=== PATIENT | male | born 1960 | race Caucasian/White ===

== ENCOUNTER 2020-01-29 03:19 | Outpatient (CLI) | payer BC, SELFPAY ==
[2020-01-29 17:59] LABS: CREATININE 0.92 mg/dL (0.70-1.30); Potassium 4.3 mmol/L (3.5-5.1)
[2020-01-30 11:22] LABS: Calculated LDL 123 mg/dL (<100); Cholesterol 226 mg/dL (<200); HDL Cholesterol 79 mg/dL (40-60); Triglyceride 124 mg/dL (<150)
== END 2020-01-29 03:39 ==
PROVIDERS: PCP Family Medicine; Visit Provider Family Medicine
DX: Z00.00 Encounter for general adult medical examination without abnormal findings (principal); E78.5 Hyperlipidemia, unspecified; Z12.5 Encounter for screening for malignant neoplasm of prostate
CPT/HCPCS: 36415; 80061; 84153; 82565; 84132

== ENCOUNTER 2020-05-04 06:20 | Day surgery (SDC) | payer BC, SELFPAY ==
[2020-05-04] VITALS (7 sets, daily range): BP systolic 85–154; BP diastolic 41–99; PULSE 57–74; RESP 11–18; TEMP 36.1–36.5; O2SAT 97–100
[2020-05-04] MEDS: Lactated Ringers 1,000 ML 80 ML IV (06:50)
[2020-05-04] MEDS: Gabapentin 300 MG CAP PO (07:08)
[2020-05-04] MEDS: Acetaminophen 500 MG TAB 1000 MG PO (07:08)
[2020-05-04] MEDS: Bupivacaine LIPOSOME/PF 133 MG/10 ML VIAL IJ ×2 (07:40→08:38)
[2020-05-04] MEDS: Bupivacaine 0.25% Pres-Free 30 ML VIAL ×2 (07:40→07:56)
--- NOTE | 2020-05-04 12:58 | W.PM.OP ---
Date of service: 05/04/20 Time of Service: 12:58 Operative Note Operative Note DATE OF PROCEDURE: 05/04/20 PRE-OP DIAGNOSIS: left inguinal hernia POST-OP DIAGNOSIS: other (indirect w/ crd lipoma- large ) PROCEDURE: open left inguinal hernia repair w/ mesh SURGEON: Pippa Adam CONSUMER STUDIES PROFESSOR: Kym Price ANESTHESIA TYPE: Local By Surgeon, General LMA/ETT and Primary Nerve Block Refer to Anesthesia Record ESTIMATED BLOOD LOSS: 5 PATHOLOGY: none sent COMPLICATIONS: None Patient was transported to: PACU Patient's condition: stable Implants: see RN notes Procedure Description: INDICATIONS: The pt is here today for surgery regarding symptomatic --- inguinal hernia that has failed outpatient conservative medical management and he is here today for repair. Informed consent was obtained, explaining risks and benefits of the procedure including but not limited to bleeding, infection, pneumonia, blood clots, chronic pain, chronic numbness, damage to testicle resulting in removal, recurrence of hernia, reaction to Mesh necessitating removal, and other unforetold complications, and complications of anesthesia-which were addressed by the [employer]. The patient is marked in preOp prior to the procedure DESCRIPTION OF PROCEDURE: The pt is then brought to the operative room suite. Anesthesia was administered per the Department of Anesthesia. Nerve block was done per the department of anesthesia. the patient was prepped and draped in the usual sterile fashion using ChloraPrep scrub solution. Pause for the cause was done. He did receive preop IV antibiotics, and 30 mL of .25% Marcaine w/ epinephrine was used for local anesthetization. A #12 blade was used to make an incision over the external ring. Electrocautery used to provide hemostasis and dissect down to the fascia. The fascia was pretty much obliterated and there was nothing to open. The cord is elevated. The nerve was not identified. There largeis a cord lipomas. Electro-cautery is used to provide hemostasis. A [place] drain was placed around the cord to assist in mobilization. The cord was explored. There was is large hernia sac on the cord. There is no direct hernia pushing through the floor. The hernia sac is dissected off the cord using a combination of blunt dissection and electrocautery. There is significant scarring from the cord to the vascular structures. Electrocautery is used to provide hemostasis. There are no contents within the hernia sac. The hernia sac is than inverted and returned to the abdominal cavity. A Lg size plug is than inserted into the defect through the internal ring, and over sewn to tighten up the ring with 2-0 vicryl. Please see RN operative notes for lot number. The cord structures are still able to freely move through the ring itself. The patch was then placed onto the floor, and using 2-0 Vicryl, sewn into the pubic tubercle and the shelving portions of the inguinal ligament, in the standard Lichenstein fashion. The tails of the mesh are brought around the cord, sewn together w/ 2-0 Vicryl, and tucked under the external oblique. The wound was copiously irrigated. There was no bleeding noted. The drain was removed. All structures are returned to normal anatomical position. The nerve is not sewn into the mesh, nor caught up in any sutures. The external oblique is re-approximated using 2-0 vicryl in a running fashion. Deep tissue was approximated with 3-0 Vicryl in a running fashion, and skin was approximated with 4-0 Monocryl in a running subcuticular fashion. Skin glue and sterile dressings are applied. The patient tolerated the procedure without complications to recovery in stable condition. PIPPA ADAM, DO
== END 2020-05-04 11:20 | disposition home or self-care (01) ==
LOC: SUR 06:20
PROVIDERS: PCP Family Medicine; Visit Provider Surgery
PROC: (CPT 49505; principal; 2020-05-04 07:30)
DX: K40.90 Unilateral inguinal hernia, without obstruction or gangrene, not specified as recurrent (principal); D17.6 Benign lipomatous neoplasm of spermatic cord; I10 Essential (primary) hypertension
CPT/HCPCS: 49505; 55520; 76942; C1781; J1100; J1885; J2250; J2405; J2704

== ENCOUNTER 2020-07-30 21:39 | Emergency (ER) | payer BC, SELFPAY ==
--- NOTE | 2020-07-30 21:41 | ED.GENADUL_ITS ---
Discharge Plan Disposition Patient Disposition: HOME Condition: Stable Discharge Details Clinical Impression: Laceration of right lower extremity Primary Care Provider: Mihir Garcia ED Provider: Jan Mullins Home Meds and New Rx's Prescriptions: New ciprofloxacin HCl 500 mg tablet 500 mg PO BID Qty: 14 RF: 0 Continued lisinopril 10 mg tablet 10 mg PO DAILY Qty: 90 RF: 3 lisinopril-hydrochlorothiazide 10-12.5 mg tablet 1 tab PO DAILY Qty: 90 RF: 3 Discharge Instructions Instructions: Laceration (ED) Additional Instructions: return in 7-10 days for evaluation for suture removal and sooner if signs of infection such as spreading redness or yellow/white discharge from the wound Medical Decision Making 59 yo male with hx of htn comes in with right lateral lower leg laceration. He was coming out of a [place] after paddleboarding. While going up some steps one broke and he fell back and cut his right leg on a side of a stair. Denies head trauma or loc. HAs a 5cm laceration that runs vertically over the right lateral distal leg. Has full rom of the ankle and foot and normal sensation so doubt tendon or nerve injury. No pain elsewhere. Will require sutures, will use local anesthetic and irrigate and close with sutures. closed without issues, will start cipro as it is a freshwater injury. Return in 7-10 days for removal and sooner for signs of infection Differential Diagnosis Differential Diagnosis: laceration, abrasion HPI General Mode of arrival: ambulatory . Date/Time Provider Initiated Documentation: 07/30/20 21:41 . Limitations to Documentation: no limitations . Information obtained by: patient . History of Present Illness 59 year old M presents to the emergency department with the chief complaint of right ankle laceration, described as moderate, Quality is described as aching, Patient reports no radiation. Patient started experiencing this hour(s) (1) and it has been constant. No relieving factors improve symptom(s), No exacerbating factors reported . Patient notes no other symptoms.. Related Data Home Medications Medication Instructions Recorded Confirmed lisinopril 10 mg tablet 10 mg PO DAILY #90 tab-cap 03/30/20 05/04/20 lisinopril 10 1 tab PO DAILY #90 tab 05/18/20 05/18/20 mg-hydrochlorothiazide 12.5 mg tablet ciprofloxacin HCl 500 mg PO BID #14 tab 07/30/20 Previous Rx's Medication Instructions Recorded lisinopril 10 mg tablet 10 mg PO DAILY #90 tab-cap 03/30/20 lisinopril 10 1 tab PO DAILY #90 tab 05/18/20 mg-hydrochlorothiazide 12.5 mg tablet ciprofloxacin HCl 500 mg PO BID #14 tab 07/30/20 Allergies Allergy/AdvReac Type Severity Reaction Status Date / Time oxycodone HCl [From Percocet] AdvReac Bad Verified 05/18/20 13:46 dreams, hallucinations Review of Systems All systems reviewed & are unremarkable except as noted in HPI and below Constitutional Constitutional: Denies chills, Denies fever(s) and Denies weakness Cardiovascular Cardiovascular: Denies chest pain and Denies dyspnea Respiratory Respiratory: Denies cough and Denies dyspnea Gastrointestinal Gastrointestinal: Denies abdominal pain, Denies nausea and Denies vomiting Musculoskeletal Musculoskeletal: Denies joint swelling Neurologic Neurologic: Denies weakness PFSH Medical History (Updated 07/30/20 @ 22:13 by Jan Mullins MD) Asthma Essential hypertension Surgical History (Updated 05/17/20 @ 10:22 by Kelly Lake RN) ankle surgery Colonoscopy - MAC History of appendectomy Hx of left inguinal hernia repair (~05/04/20) Hx of tonsillectomy Repair of inguinal hernia 10/20/16-RIGHT Vasectomy Family History (Updated 03/31/20 @ 16:13 by Meagan Maynard) Mother No problems noted. Father No problems noted. Sister No problems noted. Sister No problems noted. Brother No problems noted. Son No problems noted. Daughter No problems noted. Social History (Updated 03/31/20 @ 16:12 by Meagan Maynard) Smoking/Tobacco Use Status: Never Second Hand Exposure: Yes Smoking risk assessment performed?: Yes Alcohol Intake: current Alcohol Intake frequency: a few times a week Alcohol type: beer Drug use: Never Substance use type: does not use Adopted: No Caregiver/Support person: No Household members: spouse Housing: house Communication Needs: None Do you need help understanding health information?: Never Pets and animals: No Sexually active: Yes Do you think of yourself as: straight/heterosexual Current gender identity: male What is your relationship status?: How often do you talk on the phone with friends or family?: three or more times per week How often do you get together with friends or relatives?: three or more times per week How often do you attend nondenominational or anabaptism services?: 4 or more times per year Do you belong to any clubs or organized social groups?: no Panel score (0-1 are the most socially isolated patients): 3 What type of physical activity do you participate in: bicycling Duration: 15-30 minutes/day Frequency: daily Coco/Pentecostal: Anabaptist Special coco needs: No Seatbelt use: sometimes Helmet use: Yes Helmet use: sometimes Drive intox or ride w/intox motor pool driver: No Do you feel safe at home: Yes Do you feel safe in your relationship?: Yes Exam Const General: no acute distress Orientation: alert HENMT Head: normal to inspection Ears: external ears normal General nose exam: external nose normal Mouth: moist mucous membranes Eyes General: appearance normal, both eyes and all related structures Neck Neck: normal visual inspection Resp Effort & Inspection: normal respiratory effort and able to speak in complete sentences Cardio Rate: regular rate Skin General skin exam: no rashes or lesions noted Neuro General: patient alert and patient oriented x3 Extrem General: full ROM and capillary refill normal Psych Mental Status: mental status grossly normal Procedures Laceration Laceration 1: Site: lower extremity Side (If applicable): right Size (cm): 5 Description: linear Depth: simple, single layer Local Anesthetic: Lidocaine 1% and with Epi Amount of anesthesia used (mL): 10 Pre-repair: wound explored and irrigated extensively Skin layer closed with: nylon Size (cm): 4-0 Number of sutures: 6 Technique: simple, interrupted
[2020-07-30 21:42] VITALS: BP 179/102; PULSE 72; RESP 16; TEMP 36.3; O2SAT 99
[2020-07-30] MEDS: Ciprofloxacin 500 MG TAB PO (22:25)
== END 2020-07-30 22:25 | disposition home or self-care (01) ==
PROVIDERS: Emergency Provider Emergency Medicine; PCP Family Medicine
DX: S81.811A Laceration without foreign body, right lower leg, initial encounter (principal); W10.8XXA Fall (on) (from) other stairs and steps, initial encounter
CPT/HCPCS: 12002

== ENCOUNTER 2020-08-23 19:51 | Outpatient (REF) | payer BC, SELFPAY | END 2020-08-23 19:52 | disposition home or self-care (01) | LOC: LBN 19:51 | PROVIDERS: PCP Family Medicine; Visit Provider Nurse Practitioner Family | DX: L03.116 Cellulitis of left lower limb (principal) | CPT/HCPCS: 87077; 87070; 87186; 87205 ==

== ENCOUNTER 2022-06-15 03:34 | Outpatient (CLI) | payer BC, SELFPAY ==
[2022-06-15 13:23] LABS: CREATININE 0.9 mg/dL (0.70-1.30); Calculated LDL 131 mg/dL (<100); Cholesterol 218 mg/dL (<200); Estimated GFR 97.17 (mL/min/1.73m2); HDL Cholesterol 40 mg/dL (40-60); Potassium 4.1 mmol/L (3.5-5.1); Triglyceride 239 mg/dL (<150)
== END 2022-06-15 03:35 | disposition home or self-care (01) ==
LOC: LOS 03:34
PROVIDERS: PCP Family Medicine; Visit Provider Family Medicine
DX: I10 Essential (primary) hypertension (principal); E78.5 Hyperlipidemia, unspecified
CPT/HCPCS: 36415; 80061; 82565; 84132

== ENCOUNTER 2023-06-05 11:08 | Outpatient (CLI) | payer BC, SELFPAY ==
[2023-06-05 12:52] LABS: CREATININE 0.8 mg/dL (0.70-1.30); Calculated LDL 145 mg/dL (<100); Cholesterol 229 mg/dL (<200); Estimated GFR 100.06 (mL/min/1.73m2); HDL Cholesterol 72 mg/dL (40-60); Potassium 4.6 mmol/L (3.5-5.1); Triglyceride 62 mg/dL (<150)
[2023-06-05 18:26] LABS: PSA, Screening 3.7 ng/mL (<=4.5)
== END 2023-06-05 11:09 | disposition home or self-care (01) ==
LOC: LOS 11:08
PROVIDERS: PCP Family Medicine; Referring Provider Family Medicine; Visit Provider Family Medicine
DX: I10 Essential (primary) hypertension (principal); Z12.5 Encounter for screening for malignant neoplasm of prostate; E78.5 Hyperlipidemia, unspecified
CPT/HCPCS: 36415; 80061; 84153; 82565; 84132

== ENCOUNTER 2024-01-23 12:42 | Outpatient (CLI) | payer BC, SELFPAY ==
[2024-01-23 23:10] LABS: PSA, Diagnostic 4.3 ng/mL (<=4.5)
== END 2024-01-23 12:43 | disposition home or self-care (01) ==
LOC: LBO 12:43
PROVIDERS: PCP Family Medicine; Visit Provider Family Medicine
DX: R97.20 Elevated prostate specific antigen [PSA] (principal)
CPT/HCPCS: 36415; 84153

== ENCOUNTER 2024-06-09 03:00 | Outpatient (CLI) | payer BC, SELFPAY ==
[2024-06-10 18:55] LABS: PSA, Screening 3.3 ng/mL (<=4.5)
== END 2024-06-09 03:01 | disposition home or self-care (01) ==
LOC: LBO 03:00
PROVIDERS: PCP Family Medicine; Visit Provider Nurse Practitioner Gerontology
DX: R39.9 Unspecified symptoms and signs involving the genitourinary system (principal); R97.20 Elevated prostate specific antigen [PSA]
CPT/HCPCS: 36415; 84153

== ENCOUNTER 2024-07-04 01:28 | Outpatient (CLI) | payer BC, SELFPAY ==
[2024-07-04 16:38] LABS: CREATININE 0.8 mg/dL (0.70-1.30); Estimated GFR 99.44 (mL/min/1.73m2); Potassium 4.4 mmol/L (3.5-5.1)
[2024-07-07 09:39] LABS: HIV-1/2 Ag & Ab Screen Negative (Negative)
[2024-07-07 09:53] LABS: HBs Antibody, Quant <3.1 mIU/mL (See Note); Hep B Surface Ab Negative (See Note); Hepatitis B Core Antibody Negative (Negative); Hepatitis B Surface Antigen Negative (Negative)
[2024-07-07 10:10] LABS: Hepatitis C Ab w Rflx HCV PCR Negative (Negative)
== END 2024-07-04 01:29 | disposition home or self-care (01) ==
LOC: LBO 01:28
PROVIDERS: PCP Family Medicine; Visit Provider Family Medicine
DX: I10 Essential (primary) hypertension (principal); Z11.59 Encounter for screening for other viral diseases; Z00.00 Encounter for general adult medical examination without abnormal findings
CPT/HCPCS: 36415; 86704; 86706; 86803; 87340; 87389; 82565; 84132